=== PATIENT | female | born 1970 | race Caucasian/White ===

== ENCOUNTER → 2017-02-03 | Outpatient (CLI) | payer OTHER | LOC: KOH-I 15:00 → MRI 02-08 09:00 | DX: M54.5 Low back pain (principal); M51.37 Other intervertebral disc degeneration, lumbosacral region | CPT/HCPCS: 72148 ==

== ENCOUNTER → 2020-12-11 | Outpatient (CLI) | payer OTHER | LOC: SLEEP-COR 11:52 | DX: R06.83 Snoring (principal); R06.02 Shortness of breath | CPT/HCPCS: 95810 ==